=== PATIENT | female | born 1980 | race Native Hawaiian/Other Pacific Islander ===

== ENCOUNTER 2017-06-26 19:46 | Emergency (ER) | payer BC ==
[~2017-06-26] VITALS: Ht 172.7 cm; Wt 79.4 kg
[2017-06-26 19:59] VITALS: TEMP 98.5
[2017-06-26 20:38] LABS: PLATELET COUNT 245 K/uL (152-353)
[2017-06-26 21:45] VITALS: BP 138/71
== END 2017-06-26 21:45 | disposition home or self-care (01) ==
LOC: ED 19:46
DX: N20.0 Calculus of kidney (principal)
CPT/HCPCS: 80053; 81000; 85027; 96374; 96375; 99284; J1170; J2405

== ENCOUNTER 2017-07-31 21:09 | Emergency (ER) | payer BC ==
[~2017-07-31] VITALS: Ht 172.7 cm; Wt 81.6 kg
[2017-07-31] MEDS ORDERED: MYRBETRIQ25 MG PO (21:32)
[2017-07-31 22:25] LABS: PLATELET COUNT 256 K/uL (152-353)
[2017-07-31 23:46] VITALS: BP 132/71; TEMP 97.8
== END 2017-07-31 23:47 | disposition home or self-care (01) ==
LOC: ED 21:09
DX: R10.9 Unspecified abdominal pain (principal); Z98.890 Other specified postprocedural states
CPT/HCPCS: 36415; 81000; 85027; 99283

== ENCOUNTER 2017-10-06 15:22 | Outpatient (CLI) | payer BC ==
[~2017-10-06 15:22] MED LIST: MYRBETRIQ25 MG PO
== END 2017-10-06 19:49 | disposition home or self-care (01) ==
LOC: RAD 15:22
DX: M25.461 Effusion, right knee (principal)

== ENCOUNTER 2017-11-21 09:25 | Outpatient (CLI) | payer BC | END 2017-11-21 22:21 | disposition home or self-care (01) | LOC: MRI 09:25 | DX: M25.461 Effusion, right knee (principal) ==

== ENCOUNTER 2017-11-23 09:24 | Outpatient (CLI) | payer BC | END 2017-11-23 19:42 | disposition home or self-care (01) | LOC: MAMMO 09:24 | DX: Z12.31 Encounter for screening mammogram for malignant neoplasm of breast (principal); Z80.3 Family history of malignant neoplasm of breast; Z13.820 Encounter for screening for osteoporosis ==

== ENCOUNTER 2019-07-29 12:50 | Outpatient (CLI) | payer BC | END 2019-07-29 19:42 | disposition home or self-care (01) | LOC: LAB 12:50 | DX: R07.9 Chest pain, unspecified (principal) | CPT/HCPCS: 82550; 84484 ==

== ENCOUNTER 2021-10-05 09:16 | Outpatient (CLI) | payer BC | END 2021-10-05 19:08 | disposition home or self-care (01) | LOC: MAMMO 09:16 | PROVIDERS: ATTEND Nurse Practitioner Primary Care | DX: Z12.31 Encounter for screening mammogram for malignant neoplasm of breast (principal) ==

== ENCOUNTER 2022-02-05 12:03 | Emergency (ER) | payer BC ==
[~2022-02-05] VITALS: Ht 172.7 cm; Wt 91.6 kg
[2022-02-05 12:08] VITALS: BP 135/78; TEMP 98.7
== END 2022-02-05 13:37 | disposition home or self-care (01) ==
LOC: ED 12:03
DX: J06.9 Acute upper respiratory infection, unspecified (principal); Z20.822 Contact with and (suspected) exposure to COVID-19; F17.210 Nicotine dependence, cigarettes, uncomplicated
CPT/HCPCS: 87502; 87635; 87651; 99283; J0696; U0003

== ENCOUNTER 2022-06-13 10:45 | Emergency (ER) | payer BC ==
[~2022-06-13] VITALS: Ht 172.7 cm; Wt 81.2 kg
[2022-06-13 10:48] VITALS: BP 131/53; TEMP 98.7
== END 2022-06-13 12:46 | disposition home or self-care (01) ==
LOC: ED 10:45
DX: M25.562 Pain in left knee (principal)
CPT/HCPCS: 81025; 99282